=== PATIENT | male | born 1960 ===

== ENCOUNTER 2023-02-07 13:17 | Emergency (ER) | payer MEDICARE, OTHER ==
[2023-02-07] MEDS ORDERED: Acetaminophen 500 MG Tab PO ONE (14:07)
[2023-02-07] MEDS ORDERED: methylPREDNISolone Sodium Succinate 125 MG/2 ML SDV IM ONE (14:07)
[2023-02-07] MEDS ORDERED: Dexamethasone 4 MG/ML SDV IM ONE (14:09)
== END 2023-02-07 14:30 | disposition home or self-care (01) ==
LOC: DL.ED 13:17
DX: S89.91XA Unspecified injury of right lower leg, initial encounter (principal); Z79.899 Other long term (current) drug therapy; X50.0XXA Overexertion from strenuous movement or load, initial encounter
CPT/HCPCS: 73562; 96372; 99283; A9270; J1100